=== PATIENT | female | born 1990 | race Caucasian/White ===

== ENCOUNTER 2023-04-20 23:23 | Observation (INO) | payer OTHER, SELFPAY ==
[2023-04-20 23:26] VITALS: BP 165/114; PULSE 118; RESP 18; TEMP 36.9; O2SAT 100; BMI 43.0
[2023-04-20 23:36] VITALS: BP 165/114; PULSE 108; RESP 20; O2SAT 99
--- NOTE | 2023-04-20 23:57 | PC.NURSE ---
PT PULSES ASSESSED LEFT BOUNDING RIGHT WAS DIFFICULT TO FIND BUT FAINT AND PRESENT
[2023-04-21] VITALS (19 sets, daily range): BP systolic 118–158; BP diastolic 77–104; PULSE 89–120; RESP 16–20; TEMP 36.4–37.1; O2SAT 97–100
--- NOTE | 2023-04-21 00:23 | PC.NURSE ---
in room talking with patient at this time.
[2023-04-21 00:56] LABS: Basophils % 0.3 % (0.1-2.0); Eosinophils # 0.3 K/mm3 (0.0-0.4); Eosinophils % 4.2 % (0.1-12.0); Hematocrit 31.7 % (37.0-47.0); Hemoglobin 10.3 g/dL (12.2-16.2); Lymphocytes # 2.3 K/mm3 (0.7-4.5); Lymphocytes % 30.1 % (10-50); Mean Corpuscular HGB Conc 32.6 g/dL (31.8-35.4); Mean Corpuscular Hemoglobin 28.9 pg (27.0-31.2); Mean Corpuscular Volume 88.6 fl (81-99); Mean Platelet Volume 8.6 fl (7.4-10.4); Monocytes # 0.5 K/mm3 (0.1-1.0); Monocytes % 5.9 % (1.7-9.3); Neutrophils # 4.6 K/mm3 (1.8-7.8); Neutrophils % 59.3 % (37.0-80.0); Platelet Count 303 K/mm3 (142-424); Red Blood Count 3.58 M/mm3 (4.20-5.40); Red Cell Distribution Width 16.2 % (11.5-17.5); White Blood Count 7.7 K/mm3 (4.8-10.8)
--- NOTE | 2023-04-21 00:57 | PC.NURSE ---
magnesium bolus started at 0057, risk and benefits reviewed with patients, pt verbalizes understanding, reflexes noted +2 patellar, lungs clear to auscultate, headache 8/10 on pain scale, rn at bedside
[2023-04-21 01:01] LABS: Chloride 105 mmol/L (98-107); Potassium 3.8 mmoL/L (3.5-5.1); Sodium 137 mmol/L (136-145)
--- NOTE | 2023-04-21 01:01 | HMH.EDGENADL ---
Discharge Plan Disposition Patient Disposition: Admitted Condition: Fair Clinical Impressions Clinical Impression: Mild pre-eclampsia, , Headache, Localized swelling of right lower extremity Discharge ED Provider: David Otoole Adult HPI General Chief complaint: PAIN Stated complaint: C-section04/17/23 Right leg swollen,discolored Time Seen by Provider: 04/21/23 00:01 Mode of Arrival: Ambulatory Source of Information: Patient Limitations: No Limitations Description of Symptoms (Recalled from ER Triage Doc. by RN): pt reports swelling and cold feeling with tingling and discoloration in the right foot up to about mid calf. the pt states that she jsut got released from the hospital in [place] after a csection and tubal done on apr 16 History of Present Illness HPI narrative: 32-year-old female, G4, P4, status post and tubal ligation on April 16 at [facility] presents with multiple complaints. She reports that she had a unremarkable , delivered a healthy child via planned due to prior C-sections. She reports that she has had a headache, bilateral, throbbing, moderate to severe, nonresponsive to oral meds at home for the last 4 days. It has been constant during this time. She does not normally have headaches and when she does they usually respond to Tylenol. Patient has also had right leg swelling. This is the primary reason for presentation. She reports that it has been been mildly swollen since day of discharge and has consistently worsened. She reports some pain as well. Denies any other swelling. Denies any abdominal pain or chest pain or shortness of breath. No history of hypertension or preeclampsia. Reports that her incision is well-healing without drainage. Related Data Home Medications Medication Instructions Recorded Confirmed No Known Home Medications 04/21/23 04/21/23 Allergies Allergy/AdvReac Type Severity Reaction Status Date / Time No Known Allergies Allergy Verified 04/21/23 00:39 [facility] Disclaimer: The information contained in this section may have been updated after the patient was seen, as this information can be updated by other users. Social History Smoking Status: Never smoker alcohol intake: never current occupational status: other Travel in the last 8 weeks: None ROS Obtained: Yes All systems reviewed & no additional complaints except as documented Physical Exam General General appearance: alert and anxious Head Head exam: atraumatic and normocephalic Eye Eye exam: Present normal appearance, PERRL and EOMI ENT ENT exam: Present normal oropharynx and normal external ear exam Neck Neck exam: Present normal inspection and full ROM Chest Chest inspection: Present normal inspection and symmetric chest wall rise; Absent tenderness Respiratory Respiratory exam: Present normal lung sounds bilaterally; Absent respiratory distress Cardiovascular Cardiovascular exam: Present regular rate and normal rhythm Abdominal Exam Abdominal exam: Present soft; Absent distention, tenderness or guarding Comment: Healing incision noted without purulent drainage Extremities Exam Extremities exam: Present other (Equal pulses in PT and DP bilaterally. Circumferential calf and foot swelling of the right lower extremity below the knee with 1+ pitting edema noted. No popliteal tenderness.) Back Exam Back exam: Present normal inspection; Absent tenderness Neurological Exam Neurological exam: Present alert and oriented X3; Absent motor sensory deficit Psychiatric Psychiatric exam: Present normal affect and normal mood Skin Skin exam: Present warm, dry and normal color Lymphatic Lymphatic Findings: no adenopathy Medical Decision Making Medical Records Medical records reviewed: Yes I reviewed the patient's medical records. Yifan Inquiry Pt receiving controlled substance: No Yifan was queried for this patient: No Vital Sign
[2023-04-21 01:03] LABS: Blood Urea Nitrogen 10 mg/dl (7-17); Creatinine Clearance Estimated 141 mL/min (50-200); Estimated Glomerular Filt Rate 144 ml/min (>60); GFR (African American) 174 ML/MIN (>60)
[2023-04-21 01:04] LABS: Alanine Aminotransferase 43 U/L (12-78); Albumin Level 3.1 g/dl (3.5-5.0); Albumin/Globulin Ratio 0.9 (1.1-1.8); Alkaline Phosphatase 100 U/L (38-126); Anion Gap 9.8 mEq/L (5-15); Aspartate Amino Transferase 74 U/L (14-36); Bilirubin,Total 0.5 mg/dl (0.2-1.3); Calcium 9.4 mg/dl (8.4-10.2); Carbon Dioxide 26 mmol/L (22.0-30.0); Globulin 3.3 g/dL (1.3-3.2); Glucose 89 mg/dl (74-100); Total Protein,Serum 6.4 g/dl (6.3-8.2)
--- NOTE | 2023-04-21 01:16 | PC.NURSE ---
4g magnesium bolus complete at this time, lungs remain clear, pt alert and oriented, headache continues
[2023-04-21 01:27] LABS: Microscopic, Urine URINE MICROSCOPIC (MICROSCOPIC)
[2023-04-21 01:39] LABS: Appearance,Urine Clear (Clear); Bacteria,Urine Trace /lpf; Bilirubin,Urine Negative (Negative); Blood, Urine 2+ (Negative); Color,Urine Yellow (Yellow); Glucose,Urine (UA) Negative (Negative); Ketones,Urine Negative (Negative); Leukocyte Esterase,Urine Trace (Negative); Nitrate,Urine Negative (Negative); PH,Urine 6.5 (5.0-8.5); Protein,Urine Negative (Negative); RBC,Urine Occasional #/hpf (0-3); Squamous Epithelial Cell,Urine 20-50 #/hpf (0-5); Urobilinogen,Urine 0.2 EU/dl (0.2)
--- NOTE | 2023-04-21 01:48 | PC.NURSE ---
Rounded on patient, no concerns at this time.
--- NOTE | 2023-04-21 01:53 | PC.NURSE ---
on phone with Dr Babs Quinn
--- NOTE | 2023-04-21 02:00 | PC.NURSE ---
Dr Quinn notified this nurse of admission of patient from ED
[2023-04-21 02:07] LABS: Magnesium 1.8 mg/dl (1.6-2.3)
--- NOTE | 2023-04-21 02:13 | PC.NURSE ---
pt arrived to unit via wheelchair, pt is alert and oriented, reports only mild headache at this time. upon assessment RLE noted to have +1 pedal edema and bruising noted to right ankle, +1 pedal pulse noted, no calf tenderness or warmth noted, no LLE edema +2 pedal pulse and no calf tenderness, lungs clear to auscultate, +2 patellar reflexes, heart rate noted to be tachy but otherwise regular, pt denies dizziness, blurred vision, or epigastric pain, pt is tearful states Its just hard to be away from my babies , see vital sign flowsheet, pt oriented to room at this time and POC discussed
--- NOTE | 2023-04-21 02:20 | PC.NURSE ---
Spoke with Dr Quinn at this time, updated on BP pulse and improvement in headache pain, new orders received for labetolol 200mg po bid first dose now, if bp increases to systolic over 160 or diastolic over 110 administer labetolol 20mg iv and notify md, repeat cbc and cmp at 0500, tylenol 1000 mg q6h prn pain, ibuprofen 800mg po q6h prn pain, oxycodone 5mg po q6h prn pain, venous doppler RLE at 0700 routinely, orders verified.
--- NOTE | 2023-04-21 03:38 | PC.NURSE ---
SPOKE TO EL AT [facility] FOR MEDICAL RECORDS AT THIS TIME, SHE STATES SHE WILL CALL BACK IF RECORDS ARE ABLE TO BE SENT.
--- NOTE | 2023-04-21 05:13 | PC.NURSE ---
pt denies headache, dizziness, or blurred vision, patellar reflexes +2, lungs remain clear, pt denies epigastric pain and is able to rest comfortably, labs collected at this time, pt tolerated well
[2023-04-21 05:24] LABS: Basophils % 0.1 % (0.1-2.0); Eosinophils # 0.2 K/mm3 (0.0-0.4); Eosinophils % 3.1 % (0.1-12.0); Hematocrit 30.5 % (37.0-47.0); Hemoglobin 9.8 g/dL (12.2-16.2); Lymphocytes # 2.3 K/mm3 (0.7-4.5); Lymphocytes % 31.5 % (10-50); Mean Corpuscular Hemoglobin 28.2 pg (27.0-31.2); Mean Platelet Volume 8.4 fl (7.4-10.4); Monocytes # 0.4 K/mm3 (0.1-1.0); Monocytes % 5.9 % (1.7-9.3); Neutrophils # 4.4 K/mm3 (1.8-7.8); Neutrophils % 59.4 % (37.0-80.0); Platelet Count 265 K/mm3 (142-424); Red Blood Count 3.46 M/mm3 (4.20-5.40); Red Cell Distribution Width 16.1 % (11.5-17.5); White Blood Count 7.4 K/mm3 (4.8-10.8)
[2023-04-21 05:30] LABS: Alanine Aminotransferase 39 U/L (12-78); Albumin/Globulin Ratio 1.1 (1.1-1.8); Alkaline Phosphatase 104 U/L (38-126); Anion Gap 11.4 mEq/L (5-15); Aspartate Amino Transferase 57 U/L (14-36); Blood Urea Nitrogen 8 mg/dl (7-17); Calcium 8.4 mg/dl (8.4-10.2); Carbon Dioxide 23 mmol/L (22.0-30.0); Chloride 106 mmol/L (98-107); Creatinine Clearance Estimated 141 mL/min (50-200); Estimated Glomerular Filt Rate 144 ml/min (>60); GFR (African American) 174 ML/MIN (>60); Globulin 2.8 g/dL (1.3-3.2); Glucose 103 mg/dl (74-100); Potassium 3.4 mmoL/L (3.5-5.1); Sodium 137 mmol/L (136-145); Total Protein,Serum 5.8 g/dl (6.3-8.2)
[2023-04-21 05:32] LABS: Bilirubin,Total 0.1 mg/dl (0.2-1.3)
--- NOTE | 2023-04-21 07:12 | PC.NURSE ---
report given to Rola Ardon RN
--- NOTE | 2023-04-21 07:57 | PC.NURSE ---
07:40 Mag sulfate infusion discontinued per DR Quinn's orders
--- NOTE | 2023-04-21 08:01 | EXP.HP ---
History of Present Illness *Admission Date: 04/21/23 *Reason for visit:: Suspected DVT & preeclampsia *History of present illness: Enedelia Hobbs is a 32yo who had a and bilateral salpingectomy on 04/17 in [place]. Patient presents with right leg swelling and discoloration, primarily around her right ankle. This is the primary reason for presentation. She reports that it has been been mildly swollen since day of discharge and has consistently worsened. She reports some pain as well. Denies any other swelling. I was contacted by the ED physician who was concerned for preeclampsia and at the time of discussion the patient had been given a 4g bolus of Magnesium. preeclampsia was in the differential because on arrival her blood pressure was 165/114. This improved to 148/95 and after her first initial blood pressure she has no other reported blood pressures that are greater than 160/110. Reports that with her previous pregnancies she has never had any blood pressure problems. Denies chronic hypertension or a hx of gestational HTN. The patient was visibly upset when i saw her and stated she cried for over 3hours following admission. She is very upset about being away from her baby. Upon admission she had a headache, bilateral, throbbing, moderate to severe, nonresponsive to oral meds at home for the last 4 days. She tried percocet and ibuprofen. Pt reports it is excerbated by light. She is unable to lay completely flat secondary to discomfort from her CS incision but doesnt notice pain changes with laying vs sitting or standing. After further discussion pt and significant other state she has had headache like this before and they have black out curtains in their room for when she has a headache like this. Denies any abdominal pain or chest pain or shortness of breath. No history of hypertension or preeclampsia. Reports that her incision is well-healing without drainage. [facility] Disclaimer: The information contained in this section may have been updated after the patient was seen, as this information can be updated by other users. Medical History (Updated 04/21/23 @ 05:22 by Katherine Galo RN) delivery delivered Seizure disorder Surgical History (Updated 04/21/23 @ 05:22 by Katherine Galo RN) History of bilateral ligation of fallopian tubes Social History (Updated 04/21/23 @ 05:23 by Katherine Galo RN) Smoking Status: Never smoker alcohol intake: never current occupational status: other Travel in the last 8 weeks: None Meds Home Medications and Allergies Home Medications Medication Instructions Recorded Confirmed Type ferrous sulfate 325 mg (65 mg 325 mg PO DAILY anemia 04/21/23 04/21/23 History iron) tablet (iron) labetalol 200 mg tablet 200 mg PO BID Hypertension 04/21/23 04/21/23 History [id number] 1 mg 1 tab PO DAILY Supplement 04/21/23 04/21/23 History tablet New Prescriptions to Start Prescriptions: Allergies Allergy/AdvReac Type Severity Reaction Status Date / Time No Known Allergies Allergy Verified 04/21/23 00:39 Exam Data for Last 24 hours Vital signs and Labs for Last 24 Hours: Temp Pulse Resp BP Pulse Ox O2 Del Method 98.2 F 98 H 16 136/87 97 Room Air 04/21/23 02:15 04/21/23 06:00 04/21/23 06:00 04/21/23 06:00 04/21/23 05:00 04/21/23 06:14 Laboratory Results - last 24 hr 04/21/23 00:49: WBC 7.7, RBC 3.58 L, Hgb 10.3 L, Hct 31.7 L, MCV 88.6, MCH 28.9, MCHC 32.6, RDW 16.2, Plt Count 303, MPV 8.6, Neut % (Auto) 59.3, Lymph % (Auto) 30.1, Nance % (Auto) 5.9, Eos % (Auto) 4.2, Baso % (Auto) 0.3, Neut # (Auto) 4.6, Lymph # (Auto) 2.3, Nance # (Auto) 0.5, Eos # (Auto) 0.3, Baso # (Auto) 0.0, Sodium 137, Potassium 3.8, Chloride 105, Carbon Dioxide 26, Anion Gap 9.8, BUN 10, Creatinine 0.50 L, Estimated Creat Clear 141, Estimated GFR 144, Est GFR ( Amer) 174, Glucose 89, Calcium 9
--- NOTE | 2023-04-21 08:01 | EXP.DC.SUM ---
General Admission date:: 04/21/23 Discharge date: 04/21/23 HPI HPI HPI: Enedelia Hobbs is a 32yo who had a and bilateral salpingectomy on 04/17 in [place]. Patient presents with right leg swelling and discoloration, primarily around her right ankle. This is the primary reason for presentation. She reports that it has been been mildly swollen since day of discharge and has consistently worsened. She reports some pain as well. Denies any other swelling. I was contacted by the ED physician who was concerned for preeclampsia and at the time of discussion the patient had been given a 4g bolus of Magnesium. preeclampsia was in the differential because on arrival her blood pressure was 165/114. This improved to 148/95 and after her first initial blood pressure she has no other reported blood pressures that are greater than 160/110. Reports that with her previous pregnancies she has never had any blood pressure problems. Denies chronic hypertension or a hx of gestational HTN. The patient was visibly upset when i saw her and stated she cried for over 3hours following admission. She is very upset about being away from her baby. Upon admission she had a headache, bilateral, throbbing, moderate to severe, nonresponsive to oral meds at home for the last 4 days. She tried percocet and ibuprofen. Pt reports it is excerbated by light. She is unable to lay completely flat secondary to discomfort from her CS incision but doesnt notice pain changes with laying vs sitting or standing. After further discussion pt and significant other state she has had headache like this before and they have black out curtains in their room for when she has a headache like this. Denies any abdominal pain or chest pain or shortness of breath. No history of hypertension or preeclampsia. Reports that her incision is well-healing without drainage. Hospital Course Hospital Course Hospital Course: Enedelia is a 32yo admitted for the above reasons. Suspected DVT: Lower extremity Doppler was completed and negative for DVT. Anticipate this is just lower extremity edema. Encourage patient to monitor closely. Reports she does not have any pain with ambulation and I instructed patient that if this changes to return to care preeclampsia: Upon arrival to labor and delivery the patient did not have any more severe range blood pressures. UA was reviewed and negative for proteinuria. No significant lab abnormalities. Incidentally noted elevated AST improved the following morning. Patient denies any right upper quadrant pain. The patient did recieve just under 12 hours of magnesium prophylaxis. She desired the magnesium to be turned off and discharged as she was having a difficult time being away from her baby. She was started on Labetalol 200mg BID. Headache: With significant other at bedside couple reports she does have migraines and they have blackout curtains in their room given her history of a headache that is worse with light When i saw the patient there were cushions blocking the light from coming in as it exacerbating her headache. Pt states headache have never been associated with or her course. Pt was given acetaminophen, toradol and reglan for management. She rates the headache a 3/10, states its improved and she desires discharge without further intervention Exam Data for Last 24 hours Vital signs and Labs for Last 24 Hours: Temp Pulse Resp BP Pulse Ox O2 Del Method 98.2 F 98 H 16 136/87 97 Room Air 04/21/23 02:15 04/21/23 06:00 04/21/23 06:00 04/21/23 06:00 04/21/23 05:00 04/21/23 06:14 Laboratory Results - last 24 hr 04/21/23 00:49: WBC 7.7, RBC 3.58 L, Hgb 10.3 L, Hct 31.7 L, MCV 88.6, MCH 28.9, MCHC 32.6, RDW 16.2, Plt Count 303, MPV 8.6, Neut % (Auto) 59.3, Lymph % (Auto) 30.1, [place] % (Auto) 5.9, Eos % (Auto) 4.2, Baso % (Auto) 0.3, Neut # (Auto) 4.6, Lymph # (Auto)
--- NOTE | 2023-04-21 10:04 | CA_ITS ---
FINAL REPORT TECHNIQUE: Multiple transverse and longitudinal images were performed of the right femoral-popliteal deep venous system with augmentation and compression maneuvers. CLINICAL HISTORY: Rt lower leg swelling since on 04/17/23 FINDINGS: Right lower extremity duplex ultrasound demonstrates normal flow in the deep venous system. There is no abnormal echogenicity to suggest thrombus. There is normal compression and augmentation. IMPRESSION: No evidence of right DVT. Reviewed, Interpreted and Dictated by Franck Crocker III, MD Transcribed by Katherine Raines Authenticated and [facility]
--- NOTE | 2023-04-21 10:19 | PC.NURSE ---
quality control lab technician at bedside performing vascular study
--- NOTE | 2023-04-21 12:04 | PC.NURSE ---
1130- notified Dr Quinn of venous doppler study being negative and manual bp of 135/80. Pt continues to express concerns of her headache, rating 7/10. Requested loren, agreeable. Orders for Toradol 30mg IV x 1 dose now. 1145- called back and asked to give 15mg of reglan PO. r/v.
--- NOTE | 2023-04-21 15:11 | PC.NURSE ---
pt states after sleeping and having the lights dimmed her headache is better radiating it 3/10 and tolerable. primary RN aware.
--- NOTE | 2023-04-21 15:37 | PC.NURSE ---
Dr Quinn at bedside discussing POC with patient
--- NOTE | 2023-04-21 15:45 | PC.NURSE ---
Dr Quinn discussed in depth that she would like patient to have a CT scan related to her persistent headache. Pt refuses. also discussed trying a dose of droperidol prior to discharge. Pt declines and wishes to be discharged home.
== END 2023-04-21 17:15 | disposition home or self-care (01) ==
LOC: ER 04-21 01:39 → OB 04-21 02:00
PROVIDERS: Admitting Provider Obstetrics & Gynecology; Emergency Provider Emergency Medicine; Visit Provider Obstetrics & Gynecology
DX: O14.05 Mild to moderate pre-eclampsia, complicating the puerperium (principal)
CPT/HCPCS: 80053; 81001; 83735; 85025; 87086; 93971; 99285; G0378

== ENCOUNTER 2023-04-22 11:43 | Emergency (ER) | payer OTHER, SELFPAY ==
[2023-04-22 11:46] VITALS: BP 131/81; PULSE 85; RESP 17; TEMP 36.6; O2SAT 98; BMI 42.9
[2023-04-22 12:00] VITALS: BP 139/89; PULSE 82; RESP 18; O2SAT 98
[2023-04-22 12:30] VITALS: BP 131/81; PULSE 87; RESP 18; O2SAT 98
--- NOTE | 2023-04-22 12:55 | PC.NURSE ---
pt came to nurses station reporting I need to leave. I'll call Dr. Quinn or Dr. Garcia and get an order for the scan . Dr. Hawthorne was notified of pt requesting to leave. He was at bedside and let pt know he would be with her soon. She declined again, stating I have a and 1yr at home waiting. I didn't realize I was being registered for the ER for a new visit, I just thought I was supposed to get a ct scan . Pt understands to return to ER with any concerns, worsening headache, high BP, and vision changes. Signed for that she was leaving the hospital prior to been seen by provider.
[2023-04-22 13:04] VITALS: BP 131/71; PULSE 80; RESP 17; TEMP 36.7; O2SAT 98
== END 2023-04-22 13:05 | disposition left against medical advice (07) ==
LOC: ER 11:58
PROVIDERS: Emergency Provider Student in an Organized Health Care Education/Training Program
DX: Z53.21 Procedure and treatment not carried out due to patient leaving prior to being seen by health care provider (principal)
CPT/HCPCS: 99211